=== PATIENT | male | born 1965 | race Two or more races ===

== ENCOUNTER 2021-08-17 15:08 | Inpatient (IN) | payer OTHER ==
[~2021-08-17] VITALS: Ht 177.8 cm; Wt 127.5 kg
[2021-08-17] MEDS ORDERED: MORPHINE SULFATE 4 MG/ML SYR/VIAL IV ONE (15:15)
[2021-08-17] MEDS ORDERED: ASPirin 81 mg TAB PO ONE (15:15)
[2021-08-17] MEDS ORDERED: HEPARIN SODIUM (PORCINE) 5000 UNITS/ML 1ML VIAL ONE ×2 (15:17→15:45)
[2021-08-17] MEDS ORDERED: HEPARIN SODIUM (PORCINE) 5000 UNITS/ML 1ML VIAL IV ONE (15:30)
[2021-08-17 15:39] LABS: Basophils # (auto) 0.1 10 ^3/uL (0-0.2); Eosinophils # (auto) 0.4 10 ^3/uL (0-0.8); Eosinophils % (auto) 2.8 % (0.0-7.0); Hematocrit 45.2 % (41.0-53.0); Hemoglobin 15.3 g/dL (13.5-17.5); Lymphocytes # (auto) 3.6 10 ^3/uL (0.4-5.4); Lymphocytes % (auto) 26.4 % (10.0-50.0); Mean Corpuscular Hemoglobin 28.7 pg (28.0-32.0); Mean Corpuscular Hgb Conc. 33.8 g/dL (32.0-36.0); Mean Corpuscular Volume 84.9 fL (80.0-100.0); Monocytes # (auto) 0.9 10 ^3/uL (0-1.3); Monocytes % (auto) 6.4 % (0.0-12.0); Neutrophils # (auto) 8.5 10 ^3/uL (1.6-8.6); Neutrophils % (auto) 63.4 % (37.0-80.0); Nucleated Red Blood Cells % 0.1 %; Red Blood Cells 5.32 10^6/uL (4.5-5.90); Red Cell Distribution Width 13.5 % (11.8-14.3); White Blood Cell 13.4 10^3/uL (4.4-10.8)
[2021-08-17] MEDS ORDERED: fentaNYL CITRATE 100 MCG/2 ML VL ONE (15:44)
[2021-08-17] MEDS ORDERED: ANGIOMAX 250 MG VIAL IV ONE (15:45)
[2021-08-17] MEDS ORDERED: MIDAZOLAM HCL 2MG/2ML 2ml VIAL (1mg/ml) ONE (15:45)
[2021-08-17] MEDS ORDERED: SODIUM CHL 0.9% 50 ML ONE (15:46)
[2021-08-17] MEDS ORDERED: VERAPAMIL 2.5MG/ML INJ 2ML VIAL IV ONE (15:46)
[2021-08-17 15:51] LABS: Albumin 3.4 g/dL (3.4-5.0); Calcium 8.4 mg/dL (8.5-10.1); Magnesium 2.1 mg/dL (1.6-2.6); Potassium 4.1 mmol/L (3.5-5.1)
[2021-08-17 15:55] LABS: BUN/Creatinine Ratio 17.2; Bilirubin, Total 0.5 mg/dL (0.2-1.0)
[2021-08-17] MEDS ORDERED: NITROGLYCERIN 0.4MG/DOSE SPRAY 4.9GM ONE (16:07)
[2021-08-17] MEDS ORDERED: IODIXANOL 320MG/ML 100ML BTL IV ONE ×2 (16:18→16:36)
[2021-08-17 16:32] LABS: INR 1.16 (0.9-1.15); Partial Thromboplastin Time 32.3 sec (23.6-33.0)
[2021-08-17] MEDS ORDERED: PRASUGREL HCL 10 MG TAB PO STA (16:50)
[2021-08-17] MEDS ORDERED: MORPHINE SULFATE INJECTION 2 MG/ML SYRG IV PRN (17:00)
[2021-08-17] MEDS ORDERED: NITROGLYCERIN 0.4 MG SL TAB SL PRN (17:00)
[2021-08-17] MEDS ORDERED: ALUM & MAG HYDROX-SIMETH LIQ(MAALOX) 30 ML PO ONE (17:15)
[2021-08-17] MEDS ORDERED: HYDR-4072 PO (17:16)
[2021-08-17] MEDS ORDERED: METF-370 PO (17:16)
[2021-08-17] MEDS ORDERED: NAPR220C PO (17:16)
[2021-08-17] MEDS: SUCRALFATE 1 GM/10 ML ORAL SUSP PO SCH ×2 (19:33→21:34)
[2021-08-17] MEDS: CARVEDILOL 3.125 MG TAB PO SCH (21:35)
[2021-08-17] MEDS ORDERED: METOPROLOL TARTRATE 25 MG TAB PO SCH (22:00)
[2021-08-17] MEDS ORDERED: ATORVASTATIN 20 MG TAB PO SCH (22:00)
[2021-08-17 22:26] VITALS: BP 156/90
[2021-08-18 05:18] VITALS: BP 145/78
[2021-08-18] MEDS: SUCRALFATE 1 GM/10 ML ORAL SUSP PO SCH ×2 (05:50→11:40)
[2021-08-18] MEDS ORDERED: HYDROcodone-ACET 5/325MG TAB PO PRN (06:30)
[2021-08-18] MEDS: CARVEDILOL 3.125 MG TAB PO SCH (08:55)
[2021-08-18 09:19] VITALS: BP 147/92
[2021-08-18] MEDS ORDERED: ATORVASTATIN 20 MG TAB PO SCH (10:00)
[2021-08-18] MEDS ORDERED: CLOPIDOGREL 300 MG TAB PO ONE (10:00)
[2021-08-18] MEDS ORDERED: LISINOPRIL 5 MG TAB PO SCH (10:00)
[2021-08-18] MEDS ORDERED: PANTOPRAZOLE 40 MG/10 ML VIAL INJ IV SCH (10:00)
[2021-08-18] MEDS ORDERED: PRASUGREL HCL 10 MG TAB PO SCH ×2 (10:00)
[2021-08-18] MEDS ORDERED: ASPirin-EC 81 mg tab PO SCH (10:00)
[2021-08-18] MEDS ORDERED: OPTISON 3ml Vial for INJ IV ONE (11:22)
[2021-08-18 13:00] VITALS: BP 141/95
[2021-08-18 13:47] VITALS: BP 141/95
== END 2021-08-18 15:20 | disposition home or self-care (01) | DRG 247 ==
LOC: EDBD 15:08 → ER 15:08 → TELE-CENTR 16:52
PROVIDERS: ADMIT Internal Medicine; ATTEND Internal Medicine
PROC: 027036Z Dilation of Coronary Artery, One Artery with Three Drug-eluting Intraluminal Devices, Percutaneous Approach (ICD-10-PCS; principal; 2021-08-17)
PROC: 4A023N7 Measurement of Cardiac Sampling and Pressure, Left Heart, Percutaneous Approach (ICD-10-PCS; 2021-08-17)
PROC: B211YZZ Fluoroscopy of Multiple Coronary Arteries using Other Contrast (ICD-10-PCS; 2021-08-17)
DX: I21.3 ST elevation (STEMI) myocardial infarction of unspecified site (principal); Z68.41 Body mass index [BMI] 40.0-44.9, adult; Z20.822 Contact with and (suspected) exposure to COVID-19; E11.9 Type 2 diabetes mellitus without complications; E66.01 Morbid (severe) obesity due to excess calories; E78.5 Hyperlipidemia, unspecified; I10 Essential (primary) hypertension; I25.10 Atherosclerotic heart disease of native coronary artery without angina pectoris; K21.9 Gastro-esophageal reflux disease without esophagitis; K29.70 Gastritis, unspecified, without bleeding; Z79.84 Long term (current) use of oral hypoglycemic drugs; Z87.891 Personal history of nicotine dependence
CPT/HCPCS: 36415; 71045; 80053; 80061; 82565; 83036; 83735; 83880; 84443; 84484; 84520; 85025; 85610; 85730; 87426; 93005; 93306; 96365; 96375; 99152; 99153; 99291; C1874; C1887; C9113; G0378; J2250; Q9956; Q9967